=== PATIENT | female | born 1990 | race Caucasian/White ===

== ENCOUNTER 2016-10-17 18:05 | Emergency (ER) | payer OTHER ==
[2016-10-17 18:15] VITALS: BP 101/61; PULSE 94; TEMP 98; BMI 22.1
--- NOTE | 2016-10-17 19:24 | PDOC ---
History of Present Illness - General Chief Complaint: Allergic Reaction Stated Complaint: ALLERGIC REACTION/RASH Time Seen by Provider: 10/17/16 19:12 History Source: Patient Exam Limitations: No Limitations - History of Present Illness Initial Comments: 10/17/16 19:26 Chief complaint: Hives generalized in the last hour History of present illness: Patient is a 26-year-old female with a history of overactive bladder, and GERD here today due to patient developing generalized hives over the last hour patient took one Benadryl prior to arrival here without relief of symptoms. Patient started on Ceftdinir antibiotic for the first time yesterday took a dose last night and this morning. Denies any difficulty breathing or swallowing. Patient started on antibiotic yesterday due to having a sore throat patient's child had been diagnosed with strep throat last week. Pt. denies any new cosmetics or any new foods. Patient denies ever having hives like this in the past. Timing/Duration: getting worse (in last hour hives generalized ) Severity: moderate Associated Symptoms: reports: rash Past History - Past Medical History Allergies/Adverse Reactions: Allergies Allergy/AdvReac Type Severity Reaction Status Date / Time No Known Drug Allergies Allergy Verified 10/17/16 18:10 Home Medications: Ambulatory Orders Azithromycin [Zithromax 250mg Tablets -] 250 mg PO UTDICT #6 tab 10/17/16 Prednisone [Deltasone] 20 mg PO BID #8 tablet 10/17/16 Ranitidine [Zantac -] 150 mg PO BID #10 tablet 10/17/16 Anemia: Yes Asthma: No Cancer: No Cardiac Disorders: No CVA: No COPD: No CHF: No Dementia: No Diabetes: No GI Disorders: Yes (GERD) Disorders: Yes (overactive bladder) HTN: No Hypercholesterolemia: No Liver Disease: No Seizures: No Thyroid Disease: No - Surgical History Abdominal Surgery: No Appendectomy: No Cardiac Surgery: No Cholecystectomy: No Lung Surgery: No Neurologic Surgery: No Orthopedic Surgery: No - Psycho/Social/Smoking Cessation Hx Anxiety: No Suicidal Ideation: No Smoking Status: No Smoking History: Never smoked Have you smoked in the past 12 months: No Number of Cigarettes Smoked Daily: 0 Information on smoking cessation initiated: No Hx Alcohol Use: No Drug/Substance Use Hx: No Substance Use Type: None Hx Substance Use Treatment: No Review of Systems - Review of Systems Able to Perform ROS?: Yes Constitutional: No: Symptoms Reported HEENTM: No: Symptoms Reported Respiratory: No: Symptoms reported Cardiac (ROS): No: Symptoms Reported ABD/GI: No: Symptoms Reported : No: Symptoms Reported Musculoskeletal: No: Symptoms Reported Integumentary: Yes: Rash (hives generalized), Sweating Neurological: No: Symptoms reported *Physical Exam - Vital Signs Last Vital Signs Temp Pulse Resp BP Pulse Ox 98.0 F 94 H 18 101/61 100 10/17/16 18:12 10/17/16 18:12 10/17/16 18:12 10/17/16 18:12 10/17/16 18:12 - Physical Exam General Appearance: Yes: Appropriately Dressed HEENT: positive: TMs Normal, Pharyngeal Erythema. negative: Tonsillar Exudate, Tonsillar Erythema, Nasal Congestion, Rhinorrhea, Sinus Tenderness Neck: negative: Lymphadenopathy (R), Lymphadenopathy (L) Respiratory/Chest: positive: Lungs Clear, Normal Breath Sounds. negative: Chest Tender, Respiratory Distress Cardiovascular: positive: Regular Rhythm, Regular Rate, S1, S2 Integumentary: positive: Hives (generalized ) Neurologic: positive: Alert, Normal Response, Responsive. negative: Numbness, Sensory Deficit Medical Decision Making - Medical Decision Making 10/17/16 19:28 Patient is a 26-year-old female with a history of overactive bladder, and GERD here today due to patient developing generalized hives over the last hour patient took one Benadryl prior to arrival here without relief of symptoms. Patient started on Ceftdinir antibiotic for the first time yesterday took a dose last night and this morning. Denies any difficulty breathing or swallowing. Patient started on antibiotic yesterday due to having a sore throat patient's child had been diagnosed with strep throat last week. Pt. denies any new cosmetics or any new foods. Patient denies ever having hives like this in the past. Generalized urticaria PLAN: urine hcg benadryl 25 mg po now than every 4 hours as needed for itchiness zantac 150 mg po now than bid for following 5 days Stop Cefdinir take azithromycin 250 mg po 2 tabs today than one tab daily for the following 4 days *DC/Admit/Observation/Transfer Diagnosis at time of Disposition: Acute urticaria - Discharge Dispostion Disposition: HOME Condition at time of disposition: Stable - Patient Instructions Additional Instructions: Stop Cefdinir take benadryl 25 mg every 4 hours as needed for itchiness Return to emergency room if any difficulty breathing or swallowing A new medication for your throat infection was ordered and irma pick this up and started today Patient voiced understanding of discharge instructions and all questions were answered
[2016-10-17] MEDS ORDERED: RANITIDINE HCL 150 MG TABLET (FP) PO ONE (19:25)
[2016-10-17] MEDS ORDERED: diphenhydrAMINE HCL 25 MG CAPSULE (FP) PO ONE ×2 (19:25→19:57)
[2016-10-17] MEDS ORDERED: predniSONE 5 MG/5 ML ORAL SOLN- UNIT-DOSE CUP PO ONE (19:53)
[2016-10-17] MEDS ORDERED: RANITIDINE HCL 150 MG TABLET (FP) ONE (19:57)
[2016-10-17] MEDS ORDERED: predniSONE 20 MG TABLET (UD) ONE (19:57)
== END 2016-10-17 20:46 | disposition home or self-care (01) ==
LOC: JERFT 18:05
DX: L50.0 Allergic urticaria (principal); T36.1X5A Adverse effect of cephalosporins and other beta-lactam antibiotics, initial encounter; Y92.038 Other place in apartment as the place of occurrence of the external cause; K21.9 Gastro-esophageal reflux disease without esophagitis; N32.81 Overactive bladder
CPT/HCPCS: 84703; 99281-25

== ENCOUNTER 2018-09-12 22:19 | Emergency (ER) | payer OTHER ==
[2018-09-12 22:24] VITALS: BP 120/78; PULSE 91; TEMP 98.3; BMI 22.9
--- NOTE | 2018-09-12 23:13 | PDOC ---
History of Present Illness - General Chief Complaint: Urinary Problem Stated Complaint: URINARY PROBLEM Time Seen by Provider: 09/12/18 23:13 History Source: Patient - History of Present Illness Initial Comments: 09/12/18 23:58 28-year-old female complaining of urinary frequency suprapubic pain and hematuria worsening over the last 3 days. Patient denies fever reports some chills. Denies nausea, vomiting, diarrhea, abdominal pain patient reports bilateral flank discomfort. No past medical history Last menstrual period 2 weeks ago. Past History - Past Medical History Allergies/Adverse Reactions: Allergies Allergy/AdvReac Type Severity Reaction Status Date / Time No Known Drug Allergies Allergy Verified 09/12/18 22:23 Home Medications: Ambulatory Orders Azithromycin [Zithromax 250mg Tablets -] 250 mg PO UTDICT #6 tab 10/17/16 Prednisone [Deltasone] 20 mg PO BID #8 tablet 10/17/16 Ranitidine [Zantac -] 150 mg PO BID #10 tablet 10/17/16 Cefuroxime Axetil [Ceftin -] 500 mg PO Q12H #20 tablet 09/13/18 Anemia: Yes Asthma: No Cancer: No Cardiac Disorders: No CVA: No COPD: No CHF: No Dementia: No Diabetes: No GI Disorders: Yes (GERD) Disorders: Yes (overactive bladder) HTN: No Hypercholesterolemia: No Liver Disease: No Seizures: No Thyroid Disease: No - Surgical History Abdominal Surgery: No Appendectomy: No Cardiac Surgery: No Cholecystectomy: No Lung Surgery: No Neurologic Surgery: No Orthopedic Surgery: No - Suicide/Smoking/Psychosocial Hx Smoking Status: No Smoking History: Never smoked Have you smoked in the past 12 months: No Number of Cigarettes Smoked Daily: 0 Hx Alcohol Use: No Drug/Substance Use Hx: No Substance Use Type: None Hx Substance Use Treatment: No Review of Systems - Review of Systems Able to Perform ROS?: Yes Is the patient limited [place] proficient: No Constitutional: Yes: Chills. No: Symptoms Reported, See HPI, Diaphoresis, Fever , Loss of Appetite, Malaise, Night Sweats, Weakness, Weight Stable, Unintentional Wgt. Loss, Unexplained wgt Loss, Other ABD/GI: No: Symptoms Reported, See HPI, Abdominal Distended, Abd. Pain w/ defecation, Blood Streaked Bowels, Constipated, Diarrhea, Difficulty Swallowing , Nausea, Poor Appetite, Poor Fluid Intake, Rectal Bleeding, Vomiting, Indigestion, Abdominal cramping, Tarry Stools, Other : Yes: Burning, Dysuria, Flank Pain, Hematuria. No: Symptoms Reported, See HPI, Discharge, Frequency, Incontinence, Pain, Urgency, Testicular Mass, Testicular Swelling, Lesions, Testicular Pain, Other *Physical Exam - Vital Signs Last Vital Signs Temp Pulse Resp BP Pulse Ox 98.3 F 91 H 18 120/78 100 09/12/18 22:21 09/12/18 22:21 09/12/18 22:21 09/12/18 22:21 09/12/18 22:21 - Physical Exam General Appearance: Yes: Appropriately Dressed Respiratory/Chest: positive: Lungs Clear, Normal Breath Sounds Gastrointestinal/Abdominal: positive: Normal Bowel Sounds, Soft. negative: Tender Musculoskeletal: positive: Normal Inspection. negative: CVA Tenderness Extremity: positive: Normal Capillary Refill, Normal Inspection, Normal Range of Motion Integumentary: positive: Normal Color, Dry, Warm Neurologic: positive: Fully Oriented, Alert Moderate Sedation - Procedure Monitoring Vital Signs: Procedure Monitoring Vital Signs Temperature 98.3 F 09/12/18 22:21 Pulse Rate 91 H 09/12/18 22:21 Respiratory Rate 18 09/12/18 22:21 Blood Pressure 120/78 09/12/18 22:21 O2 Sat by Pulse Oximetry (%) 100 09/12/18 22:21 Progress Note - Progress Note Progress Note: A: uti P: Ua UCX urine Cefuroxime *DC/Admit/Observation/Transfer Diagnosis at time of Disposition: UTI (urinary tract infection) Qualifiers: Urinary tract infection type: acute cystitis Hematuria presence: with hematuria Qualified Code(s): N30.01 - Acute cystitis with hematuria - Discharge Dispostion Disposition: HOME Condition at time of disposition: Stable - Prescriptions Prescriptions: Cefuroxime Axetil [Ceftin -] 500 mg PO Q12H #20 tablet - Referrals Referrals: Castillo Aragon MD [Primary Care Provider] - - Patient Instructions Printed Discharge Instructions: Urinary Tract Infection Additional Instructions: drink plenty of fluids take ceftin as prescribed take tylenol every 4-6 hours as needed for pain take ibuprofen every 6 hours as needed for pain follow up with your primary doctor Additional Instructions: * Please call your personal physician to report your Emergency Department visit and to report your progress, if any. * If there is no improvement in symptoms in 2 days call your physician. * Return to the Emergency Department for any worsening symptoms. - Post Discharge Activity Forms/Work/School Notes: Back to Work
[2018-09-12] MEDS ORDERED: ACETAMINOPHEN 325 MG TABLET (FP) PO ONE (23:40)
[2018-09-12 23:43] LABS: HCG,QUALITATIVE URINE Negative
[2018-09-12 23:45] LABS: URINE APPEARANCE CLOUDY; URINE BILIRUBIN NEGATIVE (<2.0 mg/dL); URINE COLOR STRAW; URINE GLUCOSE (UA) NEGATIVE (NEGATIVE); URINE KETONE NEGATIVE (NEGATIVE); URINE LEUK ESTERASE 3+ (NEGATIVE); URINE NITRITE NEGATIVE (NEGATIVE); URINE PROTEIN NEGATIVE (NEGATIVE); URINE UROBILINOGEN NEGATIVE mg/dL (0.2-1.0)
[2018-09-12] MEDS ORDERED: CEFUROXIME AXETIL 500 MG TABLET PO ONE (23:46)
[2018-09-12 23:47] LABS: URINE BACTERIA RARE /hpf (NONE SEEN); URINE MUCUS RARE
[2018-09-13] MEDS ORDERED: ACETAMINOPHEN 325 MG TABLET (FP) ONE (00:04)
== END 2018-09-13 00:42 | disposition home or self-care (01) ==
LOC: JER 22:19 → JERFT 22:19 → JER 09-13 00:42
DX: N30.01 Acute cystitis with hematuria (principal)
CPT/HCPCS: 81003; 81015; 84703; 87086; 87186; 99281-25

== ENCOUNTER 2020-09-06 15:43 | Emergency (ER) | payer OTHER ==
[2020-09-06 15:51] VITALS: BP 107/69; PULSE 83; TEMP 98.9; BMI 23.4
[2020-09-06] MEDS ORDERED: DIPHTH,PERTUSS(ACELL),TET 0.5 ML DISP.SYRIN IM ONE ×2 (17:21→17:30)
== END 2020-09-06 17:43 | disposition home or self-care (01) ==
LOC: JERFT 15:43
PROC: 3E0234Z Introduction of Serum, Toxoid and Vaccine into Muscle, Percutaneous Approach (ICD-10-PCS; principal; 2020-09-06)
DX: S61.211A Laceration without foreign body of left index finger without damage to nail, initial encounter (principal)
CPT/HCPCS: 90715; 99284-25

== ENCOUNTER 2023-01-27 18:21 | Emergency (ER) | payer OTHER ==
[2023-01-27 18:44] VITALS: BP 98/66; PULSE 76; RESP 18; TEMP 98.6; BMI 22.8
[2023-01-27] MEDS ORDERED: SODIUM CHLORIDE 0.9% 500 ML INFUS.BAG IV ONE (19:37)
[2023-01-27] MEDS ORDERED: ACETAMINOPHEN 1000 MG/100 ML BAG IVPB ONE (19:37)
[2023-01-27] MEDS ORDERED: ACETAMINOPHEN INJECTION 100 ML IVPB ONE (19:45)
[2023-01-27 20:20] LABS: BASO % 0.9 % (0-2.0); EOS % 1.1 % (0-4.5); HEMATOCRIT 38.3 % (32.4-45.2); LYMPH % 20.1 % (8-40); MCH 31.8 pg (25.7-33.7); MCHC 33.9 g/dl (32.0-36.0); MEAN CELL VOLUME 93.7 fl (80-96); MEAN PLT VOLUME 7.8 fl (7.5-11.1); MONO % 5.6 % (3.8-10.2); NEUT % 72.3 % (42.8-82.8); PLATELET COUNT 306 10^3/uL (134-434); RBC 4.09 M/mm3 (3.60-5.2); RDW 13.3 % (11.6-15.6); WHITE BLOOD COUNT 12.3 K/mm3 (4.0-10.0)
[2023-01-27 20:26] LABS: HCG,QUALITATIVE URINE Negative
[2023-01-27 20:29] LABS: EPI CELLS 8 /uL (0-25.1); HYALINE CASTS 0 /uL (0-3.1); URINE APPEARANCE CLEAR; URINE BACTERIA 201 /uL (0-1359); URINE BILIRUBIN NEGATIVE (NEGATIVE); URINE COLOR YELLOW; URINE GLUCOSE (UA) NEGATIVE (NEGATIVE); URINE KETONE NEGATIVE (NEGATIVE); URINE LEUK ESTERASE NEGATIVE (NEGATIVE); URINE NITRITE NEGATIVE (NEGATIVE); URINE PROTEIN NEGATIVE (NEGATIVE); URINE RBC 107 /uL (0-23.9); URINE UROBILINOGEN 0.2 mg/dL (0.2-1.0); URINE WBC 4 /uL (0-25.8)
[2023-01-27 21:00] LABS: POTASSIUM 4.2 mmol/L (3.5-5.1)
[2023-01-27 21:01] LABS: CALCIUM 8.7 mg/dL (8.5-10.1)
[2023-01-27 21:02] LABS: BLOOD UREA NITROGEN 10.3 mg/dL (7-18)
[2023-01-27 21:05] LABS: CREATININE 0.6 mg/dL (0.55-1.3)
[2023-01-27] MEDS ORDERED: CEFTRIAXONE 1 GM in DEXTROSE 5%-WATER - 100 ML IVPB ONE (21:49)
[2023-01-27] MEDS ORDERED: CEFTRIAXONE 1 GM/50 ML BAG ONE (22:00)
== END 2023-01-27 22:24 | disposition home or self-care (01) ==
LOC: JER 18:21
PROC: 3E03329 Introduction of Other Anti-infective into Peripheral Vein, Percutaneous Approach (ICD-10-PCS; principal; 2023-01-27)
PROC: 3E033NZ Introduction of Analgesics, Hypnotics, Sedatives into Peripheral Vein, Percutaneous Approach (ICD-10-PCS; 2023-01-27)
DX: R10.31 Right lower quadrant pain (principal); R31.9 Hematuria, unspecified; R30.0 Dysuria; M54.6 Pain in thoracic spine
CPT/HCPCS: 36415; 74176-TC; 80048; 81003; 84703; 85025; 87086; 99284-25

== ENCOUNTER 2023-02-12 20:43 | Emergency (ER) | payer OTHER ==
[2023-02-12 20:56] VITALS: BP 98/68; PULSE 90; RESP 16; TEMP 97.9; BMI 22.4
[2023-02-12] MEDS ORDERED: ALBUTEROL SO4 2.5/IPRATROPIUM 0.5 INH SOL 3 ML VIAL.NEB. NEB ONE (21:17)
[2023-02-12] MEDS: ALBUTEROL SO4 2.5/IPRATROPIUM 0.5 INH SOL 3 ML VIAL.NEB. NEB SCH (21:56)
[2023-02-12] MEDS ORDERED: DEXAMETHASONE LIQUID 0.5 MG/5 ML PO ONE (22:23)
[2023-02-12] MEDS ORDERED: KETOROLAC TROMETHAMINE 15 MG/ML VIAL IM ONE (22:23)
[2023-02-12] MEDS ORDERED: KETOROLAC TROMETHAMINE 15 MG/ML VIAL ONE (22:29)
[2023-02-12] MEDS ORDERED: DEXAMETHASONE SOD PHOSPHATE 10 MG/1 ML VIAL ONE (22:29)
== END 2023-02-12 23:15 | disposition home or self-care (01) ==
LOC: JERFT 20:43 → JER 20:43 → JERFT 23:15
PROC: 3E0F7GC Introduction of Other Therapeutic Substance into Respiratory Tract, Via Natural or Artificial Opening (ICD-10-PCS; principal; 2023-02-12)
PROC: 3E0233Z Introduction of Anti-inflammatory into Muscle, Percutaneous Approach (ICD-10-PCS; 2023-02-12)
DX: R09.89 Other specified symptoms and signs involving the circulatory and respiratory systems (principal); R05.9 Cough, unspecified; J02.9 Acute pharyngitis, unspecified; R06.02 Shortness of breath; R09.81 Nasal congestion; J34.89 Other specified disorders of nose and nasal sinuses; J06.9 Acute upper respiratory infection, unspecified; Z20.822 Contact with and (suspected) exposure to COVID-19
CPT/HCPCS: 0241U-QW; 71046-TC-FY; 87651; 99284-25

== ENCOUNTER 2023-07-13 04:41 | Day surgery (SDC) | payer OTHER ==
[2023-07-08 16:25] VITALS: BMI 23.4
[2023-07-13] MEDS ORDERED: MIDAZOLAM HCL 2 MG/2 ML SINGLE DOSE VIAL ONE ×2 (17:36→18:10)
[2023-07-13 19:33] VITALS: RESP 18
[2023-07-13 19:36] VITALS: TEMP 98
[2023-07-13 19:38] VITALS: BP 109/63; PULSE 79
== END 2023-07-13 19:32 | disposition home or self-care (01) ==
LOC: JASU-SURG 04:41
PROVIDERS: ATTEND Urology
PROC: 0TF4XZZ Fragmentation in Left Kidney Pelvis, External Approach (ICD-10-PCS; principal; 2023-07-13 17:00)
DX: N20.0 Calculus of kidney (principal)
CPT/HCPCS: 81025